=== PATIENT | male | born 1950 | race African-American/Black ===

== ENCOUNTER 2016-10-07 05:10 | Inpatient (IN) | payer BC ==
[2016-09-23 16:57] VITALS: BMI 26.5
[~2016-10-07 05:10] MED LIST: BACITRACIN 30 GM TUBE TOPICAL OINTMENT TP ONE
[2016-10-07] MEDS ORDERED: BUPIVACAINE HCL/PF 0.5% (5MG/ML) 10 ML VIAL ONE (08:27)
[2016-10-07] MEDS ORDERED: BACITRACIN 30 GM TUBE TOPICAL OINTMENT ONE (08:28)
[2016-10-07] MEDS ORDERED: methylPREDNISolone ACET (DEPO) 40 MG/1 ML VIAL ONE (08:28)
[2016-10-07] MEDS ORDERED: MIDAZOLAM HCL 2 MG/2 ML SINGLE DOSE VIAL ONE ×2 (09:34→09:47)
--- NOTE | 2016-10-07 09:37 | HP ---
History & Physical Update - History History: No Change - Physical Physical: No Change - Assessment Assessment: No Change - Plan Plan: No Change
[2016-10-07] MEDS ORDERED: ROCURONIUM BROMIDE 50 MG/5 ML VIAL ONE (09:51)
[2016-10-07] MEDS ORDERED: PROPOFOL 20 ML ONE (09:52)
[2016-10-07] MEDS ORDERED: ceFAZolin SODIUM 1 GM VIAL IVPB ONE (09:55)
[2016-10-07] MEDS ORDERED: ceFAZolin SODIUM 1 GM VIAL ONE ×2 (10:10→16:24)
[2016-10-07] MEDS ORDERED: THROMBIN (BOVINE) 5,000 UNIT VIAL TP ONE (10:22)
[2016-10-07] MEDS ORDERED: BACITRACIN 50,000 UNITS VIAL TP ONE (10:22)
[2016-10-07] MEDS ORDERED: BUPIVACAINE HCL/PF 0.5% (5MG/ML) 10 ML VIAL IJ ONE (11:58)
[2016-10-07] MEDS ORDERED: ONDANSETRON 4 MG/2 ML VIAL ONE (12:06)
[2016-10-07] MEDS ORDERED: DEXAMETHASONE SOD PHOSPHATE 4 MG/1 ML VIAL ONE (12:06)
[2016-10-07] MEDS ORDERED: BACITRACIN 30 GM TUBE TOPICAL OINTMENT TP ONE (12:37)
--- NOTE | 2016-10-07 12:41 | OP ---
Operative Note - Note: Operative Date: 10/07/16 Pre-Operative Diagnosis: spinal stenosis, spondylolisthesis L4-L5 Operation: Partial bilateral L4 and L5 laminectomies for decompression of thecal sac and B L4 and L5 roots; postero-lateral autograft/allogragt fusion L4- 5 with Graft-on and autologous bone dust; microdissection with operating microscope and microsurgical techniques Findings: Stenosis, mild hypermobility; sensitive L >R L4 and L5 roots Implants: Active Barrier 4x4 cm; Graft-on 1cc Post-Operative Diagnosis: Same as Pre-op Surgeon: Alessandro Wilkins Utility Tractor Operator: Emilie Perdue Anesthesiologist/CALL CENTER PROFESSIONAL: Sri Simmons MD Anesthesia: General Estimated Blood Loss (mls): 25
[2016-10-07] MEDS ORDERED: ONDANSETRON 4 MG/2 ML VIAL IVPB PRN (12:42)
[2016-10-07] MEDS ORDERED: ACETAMINOPHEN 325 MG TABLET (FP) PO PRN (12:42)
[2016-10-07] MEDS ORDERED: BISACODYL 10 MG SUPP.RECT RC PRN (12:42)
[2016-10-07] MEDS ORDERED: PATIENT'S OWN MEDICATION (NON-FORMULARY) (Tadalafil [Cialis] 20 MG) PO PRN (12:43)
[2016-10-07] MEDS ORDERED: D5-1/2NS+20 MEQ KCL - 1,000 ML IV SCH (12:45)
[2016-10-07] MEDS ORDERED: DEXAMETHASONE SOD PHOSPHATE 4 MG/1 ML VIAL IVPUSH PRN (13:18)
--- NOTE | 2016-10-07 13:29 | SURG ---
Surgery Deputy Felony Clerk Note Deputy Felony Clerk: Emilie Perdue PA-C Date of Service: 10/07/16 Diagnosis: spinal stenosis, spondylolisthesis L4-L5 Procedure: Partial bilateral L4 and L5 laminectomies for decompression of thecal sac and B L4 and L5 roots; postero-lateral autograft/allogragt fusion L4-5 with Graft-on and autologous bone dust; microdissection with operating microscope and microsurgical techniques I was present for the entirety of the operative procedure. For further detail, please refer to operative report. Visit type - Case Type Case Type: Scheduled Admission - Emergency Emergency Visit: No - New patient This patient is new to me today: Yes Date on this admission: 10/07/16 - Critical Care Critical Care patient: No
[2016-10-07] MEDS ORDERED: LACTATED RINGERS SOLUTION 1,000 ML IV SCH (13:30)
[2016-10-07] MEDS: HYDROmorphone *PCA* 10MG/50ML DISP.SYRIN PCA SCH ×2 (13:40→17:34)
[2016-10-07 14:10] LABS: MCH 31.1 pg (25.7-33.7); MCHC 33.6 g/dl (32.0-35.9); MEAN CELL VOLUME 92.6 fl (80-96); MEAN PLT VOLUME 7.9 fl (7.5-11.1); PLATELET COUNT 189 K/MM3 (134-434); RDW 13.9 % (11.9-15.9); WHITE BLOOD COUNT 5.6 K/mm3 (4.0-10.0)
[2016-10-07 14:30] LABS: CALCIUM 8.4 mg/dL (8.5-10.1); CREATININE 1.2 mg/dL (0.7-1.3)
--- NOTE | 2016-10-07 14:31 | PN ---
Progress Note (short form) - Note Progress Note: NEUROSURGERY In PACU AF, VSS PE: Dressing C/D/I CV-RRR; Lungs- CTA B; Abd- benign Motor 5/5 B DF/PF Sensation intact LT WBC 5.6, Hgb 12.7 Chem pending CONCRETE FINISHER for pain, demand only Resp tx ordered prn IV abx Start SQ heparin in Am if minimal drainage and neurologically stable Findings d/w both pt and separately
[2016-10-07] MEDS: diazePAM 5 MG TABLET PO SCH ×2 (17:31→22:25)
[2016-10-07] MEDS: GABAPENTIN 300 MG CAPSULE (FP) PO SCH ×2 (17:31→22:24)
[2016-10-07] MEDS: DOCUSATE SODIUM 100 MG CAPSULE (FP) PO SCH ×2 (17:31→22:22)
[2016-10-07] MEDS: D5-1/2NS+20 MEQ KCL - 1,000 ML IV SCH (17:32)
[2016-10-07] MEDS ORDERED: ALBUTEROL SO4 6.7 GM HFA INHALER IH PRN (18:07)
[2016-10-07] MEDS: CEFAZOLIN 1 GM/D5W 50 ML IVPB SCH (18:54)
[2016-10-07] MEDS: ACLIDINIUM BROMIDE 400 MCG/INH AERO.POWD IH SCH (22:55)
[2016-10-08] MEDS: CEFAZOLIN 1 GM/D5W 50 ML IVPB SCH ×2 (02:09→09:58)
[2016-10-08] MEDS: diazePAM 5 MG TABLET PO SCH ×3 (06:36→22:52)
[2016-10-08] MEDS: GABAPENTIN 300 MG CAPSULE (FP) PO SCH ×3 (06:36→22:52)
[2016-10-08] MEDS: DOCUSATE SODIUM 100 MG CAPSULE (FP) PO SCH ×3 (06:36→22:52)
--- NOTE | 2016-10-08 07:56 | PN ---
Progress Note (short form) - Note Progress Note: NEUROSURGERY POD #1 AF, VSS PE: Dressing C/D/I CV-RRR; Lungs- CTA B; Abd- benign Motor 5/5 B DF/PF Sensation intact LT Cont PACKING ROOM WORKER for pain, demand only Resp tx ordered prn IV abx to be completed today Start SQ heparin Findings d/w pt again Instructions given Plan d/c tomorrow when more mobile and in less pain Incentive spirometry
--- NOTE | 2016-10-08 08:20 | PN ---
Progress Note (short form) - Note Progress Note: Post op day#1.S/P L4-L5 Laminectomy under Ga uneventful.Patient stable and c/o pain score of 2-3/10 on Dilaudid crisis mental health therapist.Will continue crisis mental health therapist today and will f/u..
[2016-10-08] MEDS ORDERED: PT OWN MED DRAWER 7, Y5N ONE (09:54)
[2016-10-08] MEDS: ACLIDINIUM BROMIDE 400 MCG/INH AERO.POWD IH SCH ×2 (09:59→22:53)
[2016-10-08] MEDS: HEPARIN NA (PORCINE) 5,000 UNITS/ML 1ML VIAL SQ SCH ×2 (09:59→22:52)
--- NOTE | 2016-10-08 10:27 | OP ---
DATE OF OPERATION: 10/07/2016 PREOPERATIVE DIAGNOSES: 1. L4-5 spondylolisthesis, grade 1. 2. Moderate to marked stenosis L4-5 with lower back pain and lumbar radiculopathy. 3. Hypertension. 4. Chronic obstructive pulmonary disease. POSTOPERATIVE DIAGNOSES: 1. L4-5 spondylolisthesis, grade 1. 2. Moderate to marked stenosis L4-5 with lower back pain and lumbar radiculopathy. 3. Hypertension. 4. Chronic obstructive pulmonary disease. ATTENDING SURGEON: Alessandro Wilkins MD OPTICAL GOODS WORKER: AMY Carlos ANESTHESIA: General endotracheal anesthesia, Sri Simmons MD ESTIMATED BLOOD LOSS: 25 mL. PROCEDURE: 1. Partial bilateral L4 and L5 laminectomies including medial facetectomy and foraminotomy for decompression of thecal sac and bilateral L4 and L5 nerve roots (74016-66, [id number]). 2. Microsurgical dissection with operating microscope, microsurgical technique (37096). 3. [place] autologous laminar bone dust ([id number]). 4. Posterolateral fusion L4-5 with bony fusion with autologous bone graft and 1 mL of Jayuya ([id number]). FINDINGS: 1. Segmental hypermobility L4-5. 2. Sensitive left greater than right L4 and L5 nerve roots. 3. Spinal stenosis secondary to facet hypertrophy and ligamentum hypertrophy as well as spondylolisthesis. INDICATION: The patient is a 66-year-old male who is complaining of mild lower back pain which is transitioning to lumbar radiculopathy. He has leg weakness, numbness, and tingling, mostly on the left greater than right lower extremity. There is also sciatica. He has undergone conservative treatment including 2 epidural steroid injections without lasting relief of his symptoms. A flexion/extension x-ray did not demonstrate instability on the sagittal views despite his spondylolisthesis. He is now consented for lumbar decompression with bone graft placement without instrumentation. Bilateral separate decompression will be performed rather than removing the spinous process which will further destabilize the spine. The patient understands indications for the procedure, procedure in detail, risks and benefits and alternatives for the treatment of his lumbar condition, for which he received no guarantee of favorable outcome. PROCEDURE IN DETAIL: After the patient was taken to the operating room, he was placed in supine position. After general anesthesia was induced and appropriate monitoring lines were placed, the patient was turned over to the prone position on a Edmond frame. All pressure points were checked and padded. Lumbar region was cleaned with alcohol and painted with Betadine. A localizing x-ray with spinal needle on the L4 spinous process. Approximately 3-inch incision was opened in midline overlying the bottom of L3 to the middle of L5. Subperiosteal dissection was carried out with periosteal elevator and monopolar electrocautery. The facet joint at L3-L4 and L4-L5 were skeletonized and preserved. Two self-retaining retractors were inserted. Localization was obtained to localize the exposure to be from L3 -L5. Some synovial cyst was noted at L4-5 level, mostly on the left. At this point the partial laminectomy on the left side was carried out with high-speed pneumatic drill, angled curette and Kerrison rongeur. The bone dust was collected during the laminectomy and saved to be used later on. Partial L4 and L5 laminectomy including medial facetectomy of approximately 15% to 20% was carried out to decompress the lateral recess on the left. Underlying ligamentum flavum was dissected free with angled curette and resected with Kerrison rongeur. This portion of the procedure was performed with the use of the operative microscope for both illumination and magnification. Microsurgical techniques were utilized. The left-sided nerve root was very sensitive to bipolar electrocautery stimulation. After decompression, it was much less so. The dental tool was used to check the lateral recess. It was passed through the L4-5 and L5-S1 neuroforamen to ascertain adequate room for the bilateral nerve roots. These were felt to be patent after decompression. Decompression was achieved with curettes and Kerrison rongeurs. Hemostasis was obtained with bipolar electrocautery and thrombin-soaked powdered Gelfoam. Attention was then turned to the right side where partial laminectomy was carried out. Because some hypermobility was encountered on the left-hand side upon decompression, a minimal amount of medial facetectomy was carried out on the right-hand side. Partial laminectomy was carried out with high-speed pneumatic drill and Kerrison rongeur. The underlying ligamentum flavum was dissected free and resected with Kerrison rongeur. Foraminotomy was also carried out to decompress the L4 and L5 nerve roots. After decompression was completed, a copious amount of irrigation was given. The posterolateral surface of the spine including the proximal transverse process at L4 and L5 was decorticated with high-speed pneumatic drill. The previously harvested autologous laminar bone dust was mixed with 1 mL of Jayuya , and the bone grafts were placed on the posterolateral surface of the spine. After decompression was completed, thecal sac was pulsating nicely with CSF pulsation. The neural foramen as well as canal were checked with dental tool and all felt to be open. Valsalva maneuver was performed, and there was no CSF drainage. A piece of 4 x 4-cm Active Barrier membrane were cut in half, and one half was placed on each side of the decompression. The interspinous ligament, supraspinatus ligament, as well as the spinous processes at L4 and L5 were preserved. After hemostasis was obtained with bipolar electrocautery, dorsal lumbar fascia was closed with 0 Vicryl suture. Subcutaneous fascia was closed with 0 Vicryl sutures. Skin was closed with 4-0 Vicryl running subcuticular suture. Steri-Strips and sterile occlusive dressing was applied. The patient tolerated the procedure well and was turned back to the supine position, with moving bilateral upper and lower extremities well. His neurological status remained stable in recovery room. The OR timeout procedure was followed. The patient received 1 dose of 2 g of Ancef prior to incision. All needle and lap counts were correct. The was updated as to the intraoperative findings as well as the patient's postoperative condition. Jimena [id number] MTDD
[2016-10-08] MEDS: D5-1/2NS+20 MEQ KCL - 1,000 ML IV SCH ×3 (11:24→22:23)
[2016-10-08] MEDS ORDERED: HYDROmorphone *PCA* 10MG/50ML DISP.SYRIN PCA SCH (15:37)
--- NOTE | 2016-10-08 17:08 | PN ---
Progress Note (short form) - Note Progress Note: NEUROSURGERY POD #1 Tmax 99.3, VSS PE: Dressing C/D/I CV-RRR; Lungs- Mild R lung exp wheeze; Abd- benign; Ext- no sign of DVT Motor 5/5 B DF/PF Sensation intact LT Na 143, Cr 1.2 Cont BOOK CANVASSER for pain, demand only IV abx to be completed today Started SQ heparin earlier Plan d/c tomorrow when more mobile and in less pain Incentive spirometry Respiratory treatment Decadron x1 Avoid oversedation per pulmonary clearance recommendations
[2016-10-08] MEDS ORDERED: DEXAMETHASONE SOD PHOSPHATE 4 MG/1 ML VIAL IVPB ONE (17:09)
[2016-10-08] MEDS: ALBUTEROL SO4 0.083% IH SOL 2.5 MG/3 ML VIAL.NEB. NEB PRN (17:15)
[2016-10-08] MEDS: ATORVASTATIN CA 80 MG TABLET (FP) PO SCH (22:52)
[2016-10-09] MEDS: GABAPENTIN 300 MG CAPSULE (FP) PO SCH ×3 (06:16→21:59)
[2016-10-09] MEDS: DOCUSATE SODIUM 100 MG CAPSULE (FP) PO SCH ×3 (06:16→21:57)
[2016-10-09] MEDS: diazePAM 5 MG TABLET PO SCH ×3 (06:16→22:00)
[2016-10-09] MEDS: HEPARIN NA (PORCINE) 5,000 UNITS/ML 1ML VIAL SQ SCH ×2 (09:10→22:00)
[2016-10-09] MEDS: ACLIDINIUM BROMIDE 400 MCG/INH AERO.POWD IH SCH ×2 (09:11→22:00)
--- NOTE | 2016-10-09 10:12 | PN ---
Progress Note (short form) - Note Progress Note: NEUROSURGERY POD #2 AF, VSS, SBP 100 Muscle "pulling" when getting up PE: Dressing C/D/I CV-RRR; Lungs- clera B; Abd- benign; Ext- no sign of DVT Motor 5/5 B DF/PF Sensation intact LT Cont HOG SCALDER for pain, demand only Add Flexeril fro muscle relaxation Started SQ heparin earlier Plan d/c tomorrow when more mobile and in less pain Incentive spirometry Respiratory treatment Avoid oversedation per pulmonary clearance recommendations Abd binder prn D/w Anesthesia
--- NOTE | 2016-10-09 10:14 | PN ---
Progress Note (short form) - Note Progress Note: Anesthesia pain follow up Still needs LITIGATION SECRETARY but had constipation and some nausea. A/P Spoke with Dr Wilkins to add non narcotics and DC LITIGATION SECRETARY tomorrow. Arely Churchill.
[2016-10-09] MEDS: CYCLOBENZAPRINE HCL 10 MG TABLET (FP) PO SCH ×2 (14:47→21:58)
[2016-10-09] MEDS: ATORVASTATIN CA 80 MG TABLET (FP) PO SCH (21:59)
[2016-10-10] MEDS: DOCUSATE SODIUM 100 MG CAPSULE (FP) PO SCH ×3 (06:21→21:57)
[2016-10-10] MEDS: GABAPENTIN 300 MG CAPSULE (FP) PO SCH ×3 (06:22→21:57)
[2016-10-10] MEDS: diazePAM 5 MG TABLET PO SCH ×3 (06:22→21:57)
[2016-10-10] MEDS: CYCLOBENZAPRINE HCL 10 MG TABLET (FP) PO SCH ×3 (06:22→21:57)
--- NOTE | 2016-10-10 09:33 | PN ---
Progress Note (short form) - Note Progress Note: NEUROSURGERY POD #3 Tmax 98.9, AF, VSS On Flexeril Not out of bed much PE: Dressing C/D/I CV-RRR; Lungs- clear B; Abd- benign; Ext- no sign of DVT Motor 5/5 B DF/PF Sensation intact LT IV site infiltrated Add Flexeril fro muscle relaxation Started SQ heparin earlier Incentive spirometry Respiratory treatment Avoid oversedation per pulmonary clearance recommendations Abd binder prn Warm compress Encouraged OOB/activity CXR, CBC, medical input Progress and plan d/w pt and
[2016-10-10] MEDS: ALBUTEROL SO4 0.083% IH SOL 2.5 MG/3 ML VIAL.NEB. NEB PRN (10:15)
[2016-10-10] MEDS: HEPARIN NA (PORCINE) 5,000 UNITS/ML 1ML VIAL SQ SCH ×2 (10:52→21:58)
[2016-10-10] MEDS: ACLIDINIUM BROMIDE 400 MCG/INH AERO.POWD IH SCH ×2 (10:53→22:03)
[2016-10-10] MEDS: oxyCODONE HCL 5 MG TABLET PO PRN ×2 (10:53→17:16)
[2016-10-10 10:55] LABS: BASOPHIL 0.3 % (0-2.0); EOSINOPHIL 2.7 % (0-4.5); MCH 30.6 pg (25.7-33.7); MCHC 33.4 g/dl (32.0-35.9); MEAN CELL VOLUME 91.7 fl (80-96); MEAN PLT VOLUME 8.1 fl (7.5-11.1); NEUTROPHILS 67.6 % (42.8-82.8); PLATELET COUNT 226 K/MM3 (134-434); RDW 14.3 % (11.9-15.9); WHITE BLOOD COUNT 8.1 K/mm3 (4.0-10.0)
[2016-10-10 12:13] LABS: ALBUMIN 3.6 g/dl (3.4-5.0); ALK PHOS 84 U/L (45-117); ANION GAP 5 (8-16); BILIRUBIN,TOTAL 0.6 mg/dL (0.2-1.0); CALCIUM 9.5 mg/dL (8.5-10.1); CO2 29 mmol/L (21-32); CREATININE 1.1 mg/dL (0.7-1.3); GLUCOSE,RANDOM 107 mg/dL (74-106); SGOT/AST 36 U/L (15-37); SGPT/ALT 47 U/L (12-78); TOT PROT 7.4 g/dl (6.4-8.2)
[2016-10-10] MEDS: guaiFENesin 200 MG/10 ML 10 ML UNIT-DOSE CUPS PO PRN (15:43)
--- NOTE | 2016-10-10 16:54 | CONSULT ---
Consult Consult Specialty:: medicine Referred by:: dr David Wilkins Reason for Consultation:: HTN, cough - History of Present Illness Chief Complaint: HTN, COPD, cough History of Present Illness: 66 YOM s/p spine surgery, POD3 h/o borderline HTN, COPD, high cholesterol, PVD; meds noted (lipitor, proair, spiriva, pletal and prn cialis) chart meds tests and events noted; pt in bed awake alert NAD sleepy but arousable; on prn percocet; limited history (pt said he wants to sleep); said he coughs "only when he feels like he needs it" no CP/SOB, no sputum, no fever/chills, no GERD; not on ACEI or ARB; no smoking (ex-smoker). Cough not new, had it in the past; CXR negative. - History Source History Provided By: Patient, Medical Record Limitations to Obtaining History: Clinical Condition - Past Medical History Cardio/Vascular: Yes: HTN, Hyperlipdemia Pulmonary: Yes: COPD Musculoskeletal: Yes: Chronic low back pain - Alcohol/Substance Use Hx Alcohol Use: No - Smoking History Smoking history: Former smoker Have you smoked in the past 12 months: No If you are a former smoker, when did you quit?: '13 - Social History History of Recent Travel: No Home Medications - Allergies Allergies/Adverse Reactions: Allergies Allergy/AdvReac Type Severity Reaction Status Date / Time No Known Drug Allergies Allergy Verified 09/23/16 16:57 - Home Medications Home Medications: Ambulatory Orders Atorvastatin Ca [Lipitor] 80 mg PO DAILY 09/23/16 Cilostazol 100 mg PO BID 09/23/16 Gabapentin 300 mg PO TID 09/23/16 Multivits,Ca,Min/Iron/FA/Lycop [Centrum Ultra Men's Tablet] 1 each PO DAILY Tadalafil [Cialis] 20 mg PO DAILY PRN 09/23/16 Tiotropium [place] [Spiriva] 1 inh PO DAILY 09/23/16 Albuterol Sulfate [Proair Respiclick] 90 mcg IH PRN PRN 10/07/16 Family Disease History - Family Disease History Family History: Unable to Obtain Review of Systems - Review of Systems Constitutional: denies: Chills, Fever, Lethargy Eyes: denies: Eye Pain HENT: denies: Ear Pain Neck: denies: Stiffness Cardiovascular: denies: Chest Pain, Shortness of Breath Respiratory: reports: Cough. denies: SOB Gastrointestinal: denies: Abdominal Pain Genitourinary: denies: Dysuria Musculoskeletal: reports: Back Pain Neurological: denies: Change in LOC Hematology/Lymphatic: denies: Excessive Bleeding Psychiatric: reports: Altered Sleep Pattern Physical Exam Vital Signs: Vital Signs Temperature 98.2 F 10/10/16 09:00 Pulse Rate 59 L 10/10/16 09:00 Respiratory Rate 18 10/10/16 09:00 Blood Pressure 113/67 10/10/16 09:00 O2 Sat by Pulse Oximetry (%) 98 10/10/16 10:53 Constitutional: Yes: No Distress (sleepy but easily arousable) Eyes: Yes: Conjunctiva Clear HENT: Yes: Atraumatic Neck: Yes: Supple Cardiovascular: Yes: Regular Rate and Rhythm Respiratory: Yes: CTA Bilaterally Gastrointestinal: Yes: Soft. No: Distention, Tenderness Musculoskeletal: No: Joint Stiffness, Joint Swelling Extremities: No: Cold, Cool Edema: No Integumentary: No: Rash, Venous Stasis Changes Neurological: Yes: Alert Psychiatric: Yes: Alert. No: Agitated Labs: CBC, BMP 10/10/16 10:20 10/10/16 10:20 Imaging - Results Chest X-ray: Report Reviewed Other: Report Reviewed Assessment/Plan Borderline HTN on no meds, high chol, COPD extob; cough; CXR negative; limited Hx and Exam sec to pt's cooperation doubt acute pulmonary infection or exacerbation cotnue albuterol and spiriva; add robitussin tid prn; close f/u, if cough worse or persistent will do additional w/u; if py smoked for > 30 years should have low dose chest CT q 1 year for early CA detection; Pulm eval and PFTs outpt DVT pfx stools softeners for constipation PFX NS and PT f/u pain meds prn; d.w staff hold for sedation or lethargy; avoid prolonged use to prevent opiates tolerance, dependence d/w pt and staff thank you for consult
[2016-10-10] MEDS: ATORVASTATIN CA 80 MG TABLET (FP) PO SCH (21:57)
[2016-10-11] MEDS: oxyCODONE HCL 5 MG TABLET PO PRN ×4 (00:10→17:41)
[2016-10-11] MEDS: DOCUSATE SODIUM 100 MG CAPSULE (FP) PO SCH ×2 (06:11→15:39)
[2016-10-11] MEDS: diazePAM 5 MG TABLET PO SCH ×2 (06:11→15:39)
[2016-10-11] MEDS: GABAPENTIN 300 MG CAPSULE (FP) PO SCH ×2 (06:11→15:39)
[2016-10-11] MEDS: CYCLOBENZAPRINE HCL 10 MG TABLET (FP) PO SCH ×2 (06:11→15:39)
[2016-10-11 07:34] VITALS: TEMP 98.2
[2016-10-11] MEDS: guaiFENesin 200 MG/10 ML 10 ML UNIT-DOSE CUPS PO PRN ×2 (08:30→12:31)
[2016-10-11 09:30] VITALS: BP 107/62; PULSE 72
--- NOTE | 2016-10-11 10:17 | PN ---
Progress Note (short form) - Note Progress Note: NEUROSURGERY POD #4 Appreciate medical input Tmax 98.2, AF, VSS On Flexeril PE: Dressing C/D/I-changed CV-RRR; Lungs- clear B; Abd- benign; Ext- no sign of DVT Motor 5/5 B DF/PF Sensation intact LT IV site infiltrated warm compresses and elevation applied CXR- negative for acute changes CBC/Chem normal Incentive spirometry Respiratory treatment Avoid oversedation per pulmonary clearance recommendations D/c instructions given Encouraged OOB/activity Progress and plan d/w pt and
[2016-10-11] MEDS: ACLIDINIUM BROMIDE 400 MCG/INH AERO.POWD IH SCH (10:27)
[2016-10-11] MEDS: HEPARIN NA (PORCINE) 5,000 UNITS/ML 1ML VIAL SQ SCH (10:29)
[2016-10-11] MEDS ORDERED: MAGNESIUM CITRATE 300 ML BOTTLE PO ONE (11:00)
[2016-10-11] MEDS ORDERED: MULTIVITAMINS (DAILY MVI) TABLET (FP) PO ONE (11:00)
--- NOTE | 2016-10-11 12:22 | PN ---
Progress Note, Physician Chief Complaint: in bed nad ate OK, has some constipation and some hemorrhoids pain this am; said he had colonoscopy 4 years ago with his GI, I advised him stools softeners and suppsotories prn for now and f/u with PCP and GI within 1 week of DC no cough no CP/SOB; no fever/chills; continue current mngt - Current Medication List Current Medications: Active Medications Acetaminophen (Tylenol -) 650 mg PO Q6H PRN PRN Reason: FEVER Aclidinium [place] (Tudorza -) 1 puff IH BID [facility] Last Admin: 10/11/16 10:27 Dose: 1 puff Albuterol Sulfate (Ventolin 0.083% Nebulizer Soln -) 1 amp NEB Q4H PRN PRN Reason: SHORT OF BREATH/WHEEZING Last Admin: 10/10/16 10:15 Dose: 1 amp Albuterol Sulfate (Ventolin Hfa Inhaler -) 2 puff IH Q6H PRN PRN Reason: SHORTNESS OF BREATH Atorvastatin Calcium (Lipitor -) 80 mg PO [facility] Last Admin: 10/10/16 21:57 Dose: 80 mg Bisacodyl (Dulcolax Suppository -) 10 mg RC DAILY PRN PRN Reason: CONSTIPATION Last Admin: 10/11/16 08:17 Dose: 10 mg Cyclobenzaprine HCl (Flexeril -) 5 mg PO TID [facility] Last Admin: 10/11/16 06:11 Dose: 5 mg Dexamethasone Sodium Phosphate (Decadron Injection -) 4 mg IVPUSH ONCE PRN PRN Reason: NAUSEA AND/OR VOMITING Last Admin: 10/08/16 17:31 Dose: 4 mg Diazepam (Valium -) 5 mg PO TID [facility] Last Admin: 10/11/16 06:11 Dose: 5 mg Diphenhydramine HCl (Benadryl Injection -) 12.5 mg IVPUSH ONCE PRN PRN Reason: FOR ITCHING Docusate Sodium (Colace -) 100 mg PO TID [facility] Last Admin: 10/11/16 06:11 Dose: 100 mg Gabapentin (Neurontin -) 300 mg PO TID [facility] Last Admin: 10/11/16 06:11 Dose: 300 mg Guaifenesin (Robitussin -) 5 ml PO Q4H PRN Last Admin: 10/11/16 08:30 Dose: 5 ml Heparin Sodium (Porcine) (Heparin -) 5,000 unit SQ BID JONI Last Admin: 10/11/16 10:29 Dose: 5,000 unit Ondansetron HCl (Zofran Injection) 4 mg IVPB Q6H PRN PRN Reason: NAUSEA AND/OR VOMITING Oxycodone HCl (Roxicodone -) 5 mg PO Q4H PRN PRN Reason: PAIN Last Admin: 10/11/16 08:17 Dose: 5 mg - Objective Vital Signs: Vital Signs Temperature 98.2 F 10/11/16 09:00 Pulse Rate 72 10/11/16 09:00 Respiratory Rate 18 10/11/16 09:00 Blood Pressure 107/62 10/11/16 09:00 O2 Sat by Pulse Oximetry (%) 98 10/10/16 21:00 Constitutional: Yes: No Distress, Calm Eyes: Yes: Conjunctiva Clear HENT: Yes: Atraumatic Neck: Yes: Supple Cardiovascular: Yes: Regular Rate and Rhythm Respiratory: Yes: CTA Bilaterally Gastrointestinal: Yes: Soft. No: Distention, Tenderness Musculoskeletal: No: Joint Stiffness, Joint Swelling Extremities: No: Cold, Cool, Cyanosis Edema: No Peripheral Pulses WNL: Yes Neurological: Yes: WNL, Alert, Oriented Psychiatric: Yes: WNL, Alert, Oriented. No: Agitated Labs: CBC, BMP 10/10/16 10:20 10/10/16 10:20 - ....Imaging Other: Report Reviewed Assessment/Plan Borderline HTN on no meds, high chol, COPD extob; cough; CXR negative; limited Hx and Exam sec to pt's cooperation doubt acute pulmonary infection or exacerbation cotnue albuterol and spiriva; add robitussin tid prn; close f/u, if cough worse or persistent will do additional w/u; if pt smoked for > 30 years should have low dose chest CT q 1 year for early CA detection; Pulm eval and PFTs outpt GI and PCP f/u outpt, stools softeners DVT pfx stools softeners for constipation PFX NS and PT f/u pain meds prn; d.w staff hold for sedation or lethargy; avoid prolonged use to prevent opiates tolerance, dependence d/w pt and staff thank you for consult
[2016-10-11] MEDS ORDERED: HYDROCORTISONE 2.5% TOPICAL CREAM 30 GM TUBE PR SCH (12:45)
== END 2016-10-11 19:40 | disposition home or self-care (01) | DRG 460 ==
LOC: JSAMEDAYSX 05:10 → EDSEX 05:10 → EDSTATUS 13:06 → J8W 17:05
PROVIDERS: ADMIT Neurological Surgery; ATTEND Neurological Surgery
PROC: 0SG0071 Fusion of Lumbar Vertebral Joint with Autologous Tissue Substitute, Posterior Approach, Posterior Column, Open Approach (ICD-10-PCS; 2016-10-07)
PROC: 01NB0ZZ Release Lumbar Nerve, Open Approach (ICD-10-PCS; principal; 2016-10-07 08:30)
DX: M48.06 Spinal stenosis, lumbar region (principal); M43.16 Spondylolisthesis, lumbar region; I10 Essential (primary) hypertension; J44.9 Chronic obstructive pulmonary disease, unspecified; E78.5 Hyperlipidemia, unspecified; Z87.891 Personal history of nicotine dependence
CPT/HCPCS: 36415; 71010-TC; 72100-TC; 80048; 80053; 85025; 85027; 86850; 86900; 86901; 94010; 94640; 94760; 97116-GP; 97161-GP; J1644